=== PATIENT | female | born 1970 | race Caucasian/White ===

== ENCOUNTER 2016-10-18 13:21 | Inpatient (IN) | payer OTHER ==
--- NOTE | 2016-10-18 17:02 | PDOC ---
History of Present Illness - History of Present Illness Initial Comments: 10/18/16 17:01 CHIEF COMPLAINT: right back pain, vomiting since am HISTORY OF PRESENT ILLNESS: 46 yo F with no PMH presents to ED with right back/ right abdominal pain since 2 am accompanied by nausea/vomiting since 4 am. Patient denies fever, chills, urinary or bowel changes. Denies chest pain, shortness of breath. No recent travel or sick contacts. PAST MEDICAL HISTORY: Denies past medical history FAMILY HISTORY: Denies SOCIAL HISTORY: Denies tobacco, alcohol, illicit drug use. SURGICAL HISTORY: Denies ALLERGIES: No known drug allergies REVIEW OF SYSTEMS General/Constitutional: Denies fever or chills. Denies weakness, weight change. HEENT: Denies change in vision. Denies ear pain or discharge. Denies sore throat. Cardiovascular: Denies chest pain or shortness of breath. Respiratory: Denies cough, wheezing, or hemoptysis. Gastrointestinal: Nausea, 2x vomiting W 4 am. Denies diarrhea or constipation. Denies rectal bleeding. Genitourinary: Denies dysuria, frequency, or change in urination. Musculoskeletal: Right sided back pain. Denies joint or muscle swelling or pain. Denies neck or back pain. Skin and breasts: Denies rash or easy bruising. Neurologic: Denies headache, vertigo, loss of consciousness, or loss of sensation. PHYSICAL EXAM General Appearance: Well-appearing, appropriately dressed. No apparent distress , no intoxication. HEENT: EOMI, PERRLA. No conjunctival pallor. No photophobia, scleral icterus. Respiratory/Chest: Lungs CTAB. Cardiovascular: RRR. S1, S2. Vascular Pulses: Dorsalis-Pedis (R): 2+, Dorsalis-Pedis (L): 2+ Gastrointestinal/Abdominal: Normal bowel sounds. Abdomen soft, non-distended. No tenderness or rebound tenderness. No organomegaly, pulsatile mass, guarding , hernia, hepatomegaly, splenomegaly. Lymphatic: No adenopathy, tenderness. Musculoskeletal/Extremities: R CVA tenderness. Normal inspection. FROM of all extremities, normal capillary refill. Pelvis Stable. No CVA tenderness. No tenderness to extremities, pedal edema, swelling, erythema or deformity. Integumentary: Appropriate color, dry, warm. 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 Fully oriented, alert. Appropriate mood/affect. Motor strength 5/5. No appreciable EOM palsy, facial droop or sensory deficit. <Lary Gaxiola - Last Filed: 10/18/16 18:37> <Joanne Mackay - Last Filed: 10/18/16 19:35> - General Chief Complaint: Pain, Acute Stated Complaint: R SIDE BACK PAIN Time Seen by Provider: 10/18/16 17:01 Past History - Past Medical History Other medical history: denies - Psycho/Social/Smoking Cessation Hx Suicidal Ideation: No Smoking History: Never smoked Have you smoked in the past 12 months: No Information on smoking cessation initiated: No <Lary Gaxiola - Last Filed: 10/18/16 18:37> <Joanne Mackay - Last Filed: 10/18/16 19:35> - Past Medical History Allergies/Adverse Reactions: Allergies Allergy/AdvReac Type Severity Reaction Status Date / Time No Known Allergies Allergy Verified 10/18/16 13:28 Home Medications: Ambulatory Orders NK [No Known Home Medication] 10/18/16 *Physical Exam - Vital Signs Last Vital Signs Temp Pulse Resp BP Pulse Ox 83 18 160/94 98 10/18/16 13:28 10/18/16 13:28 10/18/16 13:28 10/18/16 13:28 <Lary Gaxiola - Last Filed: 10/18/16 18:37> - Vital Signs Last Vital Signs Temp Pulse Resp BP Pulse Ox 83 18 160/94 98 10/18/16 13:28 10/18/16 13:28 10/18/16 13:28 10/18/16 13:28 <Joanne Mackay - Last Filed: 10/18/16 19:35> ED Treatment Course - LABORATORY CBC & Chemistry Diagram: 10/18/16 17:12 10/18/16 17:12 <Lary Gaxiola - Last Filed: 10/18/16 18:37> - LABORATORY CBC & Chemistry Diagram: 10/18/16 17:12 10/18/16 17:12 - ADDITIONAL ORDERS Additional order review: Laboratory Results 10/18/16 10/18/16 17:12 17:12 Sodium 140 Potassium 4.7 Chloride 105 Carbon Dioxide 26 Anion Gap 9 BUN 17 Creatinine 1.3 H Creat Clearance w eGFR 43.72 Random Glucose 116 H Calcium 9.4 Total Bilirubin 0.4 AST 30 ALT 27 Alkaline Phosphatase 80 Total Protein 7.6 Albumin 4.1 Urine Color Yellow Urine Appearance Cloudy Urine pH 5.0 Ur Specific [place] 1.028 Urine Protein 1+ H Urine Glucose (UA) Negative Urine Ketones 1+ H Urine Blood 3+ H Urine Nitrite Negative Urine Bilirubin Negative Urine Urobilinogen Negative Ur Leukocyte Esterase Negative Urine RBC 71 Urine WBC 6 Ur Epithelial Cells Rare Urine Mucus Rare Urine HCG, Qual Negative 10/18/16 17:12 RBC 5.00 MCV 84.6 MCHC 33.0 RDW 13.5 MPV 9.3 Neutrophils % 84.0 H Lymphocytes % 10.0 Monocytes % 5.0 - Medications Given in the ED: ED Medications Discontinued Medications Generic Name Dose Route Start Last Admin Trade Name Jamaalq PRN Reason Stop Dose Admin Ketorolac Tromethamine 30 mg 10/18/16 17:26 10/18/16 17:37 Toradol Injection - IVPUSH 10/18/16 17:27 30 mg ONCE ONE Administration Sodium Chloride 1,000 ml 10/18/16 17:13 10/18/16 17:13 Normal Saline - IV 10/18/16 17:14 1,000 ml NOW ONE Administration <Joanne Mackay - Last Filed: 10/18/16 19:35> Medical Decision Making - Medical Decision Making 10/18/16 18:02 46 yo F with no PMH presents to ED with new onset R back pain with N/V since this morning. Ddx: Nephrolithiasis, pancreatitis, appendicitis. Dissection, AAA considered but unlikely given history and clinical presentation. -UA, Ucx, Urine preg -CMP, lipase -30 mg Toradol IV UA: [address] to r/o stones. 10/18/16 18:34 UA: WBC 14.2, mild left shift to 84.[address] <Lary Gaxiola - Last Filed: 10/18/16 18:37> - Medical Decision Making 10/18/16 19:34 Patient Name: Wilma Snowden THIS IS A PRELIMINARYREPORT FROM IMAGING DIRECTOR OF FINANCIAL REPORTING DATE OF SERVICE: 2016-10-18 18:26:34.0 IMAGES: 465 EXAM: CT of the abdomen and pelvis without contrast HISTORY:Right flank pain COMPARISON: None. FINDINGS:Serial transaxial images of the abdomen and pelvis are available without oral or intravenous contrast agent. Sagittal and coronal reformatted imaging is available. Visible portions of the lung base are normal. No focal abnormality of the liver is seen. The gallbladder and spleen are normal. There is a small intrathoracic hiatal hernia. The pancreas is normal. The adrenal glands are normal. The left kidney is grossly within normal limits. There is relative enlargement of the right kidney with perinephric stranding and possible fluid. There is mild to moderate dilatation of the right renal collecting system with a partially obstructing distal right ureteral stone. This measures nearly 5 mm in size. There is poor distention of the urinary bladder. The uterus is grossly unremarkable. A normal appendix is seen. No inflammation of the colon is seen or small bowel. No bowel obstruction is seen. No free air is seen. No adenopathy is seen. The osseous structures are unremarkable. IMPRESSION: Findings most consistent with a partially obstructing distal right ureteral stone. A secondary pyelonephritis of the right kidney cannot be excluded THIS DOCUMENT HAS BEEN ELECTRONICALLY SIGNED <Joanne Mackay - Last Filed: 10/18/16 19:35> *DC/Admit/Observation/Transfer <Lary Gaxiola - Last Filed: 10/18/16 18:37> <Joanne Mackay - Last Filed: 10/18/16 19:35> Diagnosis at time of Disposition: Hydronephrosis with renal and ureteral calculus obstruction, Pyelonephritis, Vomiting - Discharge Dispostion Condition at time of disposition: Guarded
[2016-10-18] MEDS ORDERED: SODIUM CHLORIDE 0.9% 1000 ML INFUS.BAG IV ONE (17:13)
[2016-10-18 17:15] LABS: MCH 27.9 pg (25.7-33.7); MEAN CELL VOLUME 84.6 fl (80-96); MEAN PLT VOLUME 9.3 fl (7.5-11.1); PLATELET COUNT 232 K/MM3 (134-434); RDW 13.5 % (11.6-15.6); WHITE BLOOD COUNT 14.2 K/mm3 (4.0-10.0)
[2016-10-18 17:18] LABS: URINE APPEARANCE CLOUDY; URINE BILIRUBIN NEGATIVE (NEGATIVE); URINE COLOR YELLOW; URINE GLUCOSE (UA) NEGATIVE (NEGATIVE); URINE KETONE 1+ (NEGATIVE); URINE LEUK ESTERASE NEGATIVE (NEGATIVE); URINE NITRITE NEGATIVE (NEGATIVE); URINE UROBILINOGEN NEGATIVE E.U./dl (0.2-1.0)
[2016-10-18 17:19] LABS: URINE BLOOD 3+ (NEGATIVE); URINE PROTEIN 1+ (NEGATIVE)
[2016-10-18] MEDS ORDERED: KETOROLAC TROMETHAMINE 30 MG/1 ML VIAL IVPUSH ONE (17:26)
[2016-10-18 17:27] LABS: URINE MUCUS RARE; URINE RBC 71 /hpf (0-3); URINE WBC 6 /hpf (3-5)
[2016-10-18] MEDS ORDERED: KETOROLAC TROMETHAMINE 60 MG/2 ML VIAL ONE (17:34)
[2016-10-18 17:51] LABS: ALBUMIN 4.1 g/dl (3.4-5.0); BILIRUBIN,TOTAL 0.4 mg/dL (0.2-1.0); CALCIUM 9.4 mg/dL (8.5-10.1); CREATININE 1.3 mg/dL (0.55-1.02); TOT PROT 7.6 g/dl (6.4-8.2)
[2016-10-18 18:07] LABS: PLATELET ESTIMATE ADEQUATE (NORMAL)
[2016-10-18] MEDS ORDERED: LEVOFLOXACIN 750 MG IVPB 150 ML IVPB ONE ×2 (19:20→19:26)
[2016-10-18] MEDS ORDERED: SODIUM CHLORIDE 1,000 ML IV ONE (19:22)
--- NOTE | 2016-10-18 19:43 | PN ---
<Pratibha Noriega - Last Filed: 10/18/16 19:43> Teaching Attending Note Name of Resident: Abelardo Chandler <Maikel Brambila - Last Filed: 10/18/16 22:32> Teaching Attending Note ATTENDING PHYSICIAN STATEMENT I saw and evaluated the patient. I reviewed the resident's note and discussed the case with the resident. I agree with the resident's findings and plan as documented. SUBJECTIVE: Patient is a 46 year old female who presented to the ED with right sided flank pain. Patient stated that around 2am she was awoken from her sleep by the pain. The patient described the pain as sharp, non-radiating, and a 7/10 in severity. The patient stated that her pain had no alleviating or exacerbating factors. The patient reported 2 episodes of vomiting at since 4 am. The patient stated that she took 2 motrin to alleviate symptoms but threw up shortly after. She reported associated cold sweats and chills. She denied similar prior symptoms, fever, hematuria, dysuria, lightheadedness, chest pain and SOB. OBJECTIVE: Vital Signs: Last Vital Signs Temp Pulse Resp BP Pulse Ox 83 18 160/94 98 10/18/16 13:28 10/18/16 13:28 10/18/16 13:28 10/18/16 13:28 GENERAL: Awake, alert, and fully oriented, in no acute distress HEENT: Atraumatic. PERRLA, EOMI. Moist mucosa. No JVD LUNGS: No distress, speaks full sentences, clear to auscultation bilaterally HEART: Regular rate and rhythm, normal S1 and S2, no murmurs, rubs or gallops, peripheral pulses normal and equal bilaterally. ABDOMEN: (+) Right side renal angle tenderness present. Soft, normoactive bowel sounds. No guarding, no rebound. No masses EXTREMITIES: Normal inspection, Normal range of motion, no edema. No clubbing or cyanosis. NEUROLOGICAL: Cranial nerves II through XII grossly intact. Normal speech, normal gait, no focal sensorimotor deficits SKIN: Warm, Dry, normal turgor, no rashes or lesions noted. Labs: CBCD WBC 14.2 K/mm3 (4.0-10.0) H 10/18/16 17:12 RBC 5.00 M/mm3 (3.60-5.2) 10/18/16 17:12 Hgb 14.0 GM/dL (10.7-15.3) 10/18/16 17:12 Hct 42.4 % (32.4-45.2) 10/18/16 17:12 MCV 84.6 fl (80-96) 10/18/16 17:12 MCHC 33.0 g/dl (32.0-36.0) 10/18/16 17:12 RDW 13.5 % (11.6-15.6) 10/18/16 17:12 Plt Count 232 K/MM3 (134-434) 10/18/16 17:12 MPV 9.3 fl (7.5-11.1) 10/18/16 17:12 CMP Sodium 140 mmol/L (136-145) 10/18/16 17:12 Potassium 4.7 mmol/L (3.5-5.1) 10/18/16 17:12 Chloride 105 mmol/L (98-107) 10/18/16 17:12 Carbon Dioxide 26 mmol/L (21-32) 10/18/16 17:12 Anion Gap 9 (8-16) 10/18/16 17:12 BUN 17 mg/dL (7-18) 10/18/16 17:12 Creatinine 1.3 mg/dL (0.55-1.02) H 10/18/16 17:12 Creat Clearance w eGFR 43.72 (>60) 10/18/16 17:12 Calcium 9.4 mg/dL (8.5-10.1) 10/18/16 17:12 Total Bilirubin 0.4 mg/dL (0.2-1.0) 10/18/16 17:12 AST 30 U/L (15-37) 10/18/16 17:12 ALT 27 U/L (12-78) 10/18/16 17:12 Alkaline Phosphatase 80 U/L (45-117) 10/18/16 17:12 Total Protein 7.6 g/dl (6.4-8.2) 10/18/16 17:12 Albumin 4.1 g/dl (3.4-5.0) 10/18/16 17:12 ASSESSMENT AND PLAN: Ureterolithiasis with Pyelonephritis renal angle tenderness, elevated wbc count , perinephric stranding, -IVF 150ml/hr -Morphine 2mg iv Q6H PRN -Flomax 0.4mg daily -Ceftriaxone 2gm IV -Repeat CBC in morning BRAYAN -IV fluid -Monitor creatinine -Fluid: NS 150ml/hr -Electrolytes repeat in morning -Nutrition: regular diet DVT PPX-patient ambulatory Admit to med surg. Documentation prepared by Maikel Brambila, acting as medical or surgical instrument maker for Dr. eLann MD.
[2016-10-18] MEDS ORDERED: CEFTRIAXONE 100 ML IVPB ONE (20:56)
--- NOTE | 2016-10-18 20:59 | HP ---
Addendum entered and electronically signed by Abelardo Chandler RES 10/19/16 07:24 : case discussed with Dr Aguilera urologist. Will take patient for procedure tomorrow Original Note: CHIEF COMPLAINT: right flank pain PCP: Dr Tineo HISTORY OF PRESENT ILLNESS: 46 yo F with no PMH presents to ED with right flank since 2 am, pain was 7/10 in intensity, sharp, non radiating, decreased with medication, no aggravating factor. Pain associated with 2 epsiodes of vomiting , chills and sweating. Patient Didn't check temperature . Patient denies burning micturation, blood in urine, Denies increase in frequency of micturation. Denies diarrhoea, constipation, blood in stool, loss of weight and apatite. Patient took two tablets of motrin in home. No h/o gout, hyperurecemia denies calcium intake ER course was notable for: (1) Iv fluid (2) IV toradol (3) Iv levofloxacin Recent Travel: No recent travel or sick contacts. PAST MEDICAL HISTORY: Hypoglycemia PAST SURGICAL HISTORY: denies Social History: Smoking: no Alcohol:no Drugs: no Family History: Allergies No Known Allergies Allergy (Verified 10/18/16 13:28) HOME MEDICATIONS: Home Medications Medication Instructions Recorded NK [No Known Home Medication] 10/18/16 REVIEW OF SYSTEMS CONSTITUTIONAL: Absent: fever, chills, diaphoresis, generalized weakness, malaise, loss of appetite, weight change HEENT: Absent: rhinorrhea, nasal congestion, throat pain, throat swelling, difficulty swallowing, mouth swelling, ear pain, eye pain, visual changes CARDIOVASCULAR: Absent: chest pain, syncope, palpitations, irregular heart rate, lightheadedness , peripheral edema RESPIRATORY: Absent: cough, shortness of breath, dyspnea with exertion, orthopnea, wheezing, stridor, hemoptysis GASTROINTESTINAL: Absent: abdominal pain, abdominal distension, nausea, vomiting, diarrhea, constipation, melena, hematochezia GENITOURINARY: Absent: dysuria, frequency, urgency, hesitancy, hematuria, flank pain, genital pain MUSCULOSKELETAL: Absent: myalgia, arthralgia, joint swelling, back pain, neck pain SKIN: Absent: rash, itching, pallor HEMATOLOGIC/IMMUNOLOGIC: Absent: easy bleeding, easy bruising, lymphadenopathy, frequent infections ENDOCRINE: Absent: unexplained weight gain, unexplained weight loss, heat intolerance, cold intolerance NEUROLOGIC: Absent: headache, focal weakness or paresthesias, dizziness, unsteady gait, seizure, mental status changes, bladder or bowel incontinence PSYCHIATRIC: Absent: anxiety, depression, suicidal or homicidal ideation, hallucinations. PHYSICAL EXAMINATION Vital Signs - 24 hr 10/18/16 13:28 Pulse Rate 83 Respiratory 18 Rate Blood Pressure 160/94 O2 Sat by Pulse 98 Oximetry (%) GENERAL: Awake, alert, and fully oriented, in no acute distress. HEAD: Normal with no signs of trauma. EYES: Pupils equal, round and reactive to light, extraocular movements intact, sclera anicteric, conjunctiva clear. No lid lag. EARS, NOSE, THROAT: Ears normal, nares patent, oropharynx clear without exudates. Moist mucous membranes. NECK: Normal range of motion, supple without lymphadenopathy, JVD, or masses. LUNGS: Breath sounds equal, clear to auscultation bilaterally. No wheezes, and no crackles. No accessory muscle use. HEART: Regular rate and rhythm, normal S1 and S2 without murmur, rub or gallop. ABDOMEN: Soft, nontender, not distended, normoactive bowel sounds, no guarding, no rebound, no masses. No hepatomegaly or splenomegaly right side renal angle tenderness present . MUSCULOSKELETAL: Normal range of motion at all joints. No bony deformities or tenderness. No CVA tenderness. UPPER EXTREMITIES: 2+ pulses, warm, well-perfused. No cyanosis. No clubbing. Cap refill <2 seconds. No peripheral edema. LOWER EXTREMITIES: 2+ pulses, warm, well-perfused. No calf tenderness. No peripheral edema. NEUROLOGICAL: Cranial nerves II-XII intact. Normal speech. Normal gait. PSYCHIATRIC: Cooperative. Good eye contact. Appropriate mood and affect. SKIN: Warm, dry, normal turgor, no rashes or lesions noted. Laboratory Results - last 24 hr 10/18/16 10/18/16 10/18/16 17:12 17:12 17:12 WBC 14.2 H RBC 5.00 Hgb 14.0 Hct 42.4 MCV 84.6 MCHC 33.0 RDW 13.5 Plt Count 232 MPV 9.3 Neutrophils % 84.0 H Lymphocytes % 10.0 Monocytes % 5.0 Band Neutrophils 1.0 Platelet Estimate Adequate Platelet Comment No clumping noted Sodium 140 Potassium 4.7 Chloride 105 Carbon Dioxide 26 Anion Gap 9 BUN 17 Creatinine 1.3 H Creat Clearance w eGFR 43.72 Random Glucose 116 H Calcium 9.4 Total Bilirubin 0.4 AST 30 ALT 27 Alkaline Phosphatase 80 Total Protein 7.6 Albumin 4.1 Urine Color Yellow Urine Appearance Cloudy Urine pH 5.0 Ur Specific [place] 1.028 Urine Protein 1+ H Urine Glucose (UA) Negative Urine Ketones 1+ H Urine Blood 3+ H Urine Nitrite Negative Urine Bilirubin Negative Urine Urobilinogen Negative Ur Leukocyte Esterase Negative Urine RBC 71 Urine WBC 6 Ur Epithelial Cells Rare Urine Mucus Rare Urine HCG, Qual Negative Current Medications Generic Name Dose Route Start Last Admin Trade Name Freq PRN Reason Stop Dose Admin Ceftriaxone Sodium 2 gm/ 100 mls @ 200 mls/hr 10/18/16 20:56 Dextrose IVPB 10/18/16 21:25 ONCE ONE Sodium Chloride 1,000 mls @ 150 mls/hr 10/18/16 21:00 Normal Saline - IV ASDIR VANNESSA Morphine Sulfate 2 mg 10/18/16 20:56 Morphine Injection - IVPUSH Q6H PRN PAIN Tamsulosin HCl 0.4 mg 10/19/16 10:00 Flomax - PO DAILY VANNESSA CT of the abdomen and pelvis FINDINGS:Serial transaxial images of the abdomen and pelvis are available without oral or intravenous contrast agent. Sagittal and coronal reformatted imaging is available. Visible portions of the lung base are normal. No focal abnormality of the liver is seen. The gallbladder and spleen are normal. There is a small intrathoracic hiatal hernia. The pancreas is normal. The adrenal glands are normal. The left kidney is grossly within normal limits. There is relative enlargement of the right kidney with perinephric stranding and possible fluid. There is mild to moderate dilatation of the right renal collecting system with a partially obstructing distal right ureteral stone. This measures nearly 5 mm in size. There is poor distention of the urinary bladder. The uterus is grossly unremarkable. A normal appendix is seen. No inflammation of the colon is seen or small bowel. No bowel obstruction is seen. No free air is seen. No adenopathy is seen. The osseous structures are unremarkable. IMPRESSION: Findings most consistent with a partially obstructing distal right ureteral stone. A secondary pyelonephritis of the right kidney cannot be excluded THIS DOCUMENT HAS BEEN ELECTRONICALLY SIGNED ASSESSMENT/PLAN: 46 yo F with no PMH presents to ED with right flank diagnosed to have renal stone ureterolithiasis with pyelonephritis renal angle tenderness, elevated wbc count, perinephric stranding, Iv fluid 150ml/hr morphine 2mg iv q6h prn flomax 0.4mg daily ceftriaxone 2gm iv repeat cbc in morning Nataly IV fluid monitor creatinine Fluid: NS 150ml/hr electrolytes repeat in morning nutrition: regular diet dvt pro: patient ambulatory GI pro: not required Dispo: admit in med surg Visit type - Emergency Visit Emergency Visit: Yes ED Registration Date: 10/18/16 Care time: The patient presented to the Emergency Department on the above date and was hospitalized for further evaluation of their emergent condition. - New Patient This patient is new to me today: Yes Date on this admission: 10/19/16 - Critical Care Critical Care patient: No
[2016-10-18] MEDS ORDERED: CEFTRIAXONE 50 ML ONE (21:50)
[2016-10-18] MEDS ORDERED: morphine CARPU-JECT 2 MG/1 ML DISP.SYRIN ONE (21:50)
[2016-10-18] MEDS: morphine CARPU-JECT 2 MG/1 ML DISP.SYRIN IVPUSH PRN (21:57)
[2016-10-18] MEDS: SODIUM CHLORIDE 1,000 ML IV SCH (22:00)
--- NOTE | 2016-10-18 22:02 | PDOC ---
*Physical Exam - Vital Signs Last Vital Signs Temp Pulse Resp BP Pulse Ox 83 18 160/94 98 10/18/16 13:28 10/18/16 13:28 10/18/16 13:28 10/18/16 13:28 ED Treatment Course - LABORATORY CBC & Chemistry Diagram: 10/18/16 17:12 10/18/16 17:12 - ADDITIONAL ORDERS Additional order review: Laboratory Results 10/18/16 10/18/16 17:12 17:12 Sodium 140 Potassium 4.7 Chloride 105 Carbon Dioxide 26 Anion Gap 9 BUN 17 Creatinine 1.3 H Creat Clearance w eGFR 43.72 Random Glucose 116 H Calcium 9.4 Total Bilirubin 0.4 AST 30 ALT 27 Alkaline Phosphatase 80 Total Protein 7.6 Albumin 4.1 Urine Color Yellow Urine Appearance Cloudy Urine pH 5.0 Ur Specific [place] 1.028 Urine Protein 1+ H Urine Glucose (UA) Negative Urine Ketones 1+ H Urine Blood 3+ H Urine Nitrite Negative Urine Bilirubin Negative Urine Urobilinogen Negative Ur Leukocyte Esterase Negative Urine RBC 71 Urine WBC 6 Ur Epithelial Cells Rare Urine Mucus Rare Urine HCG, Qual Negative 10/18/16 17:12 RBC 5.00 MCV 84.6 MCHC 33.0 RDW 13.5 MPV 9.3 Neutrophils % 84.0 H Lymphocytes % 10.0 Monocytes % 5.0 - Medications Given in the ED: ED Medications Discontinued Medications Generic Name Dose Route Start Last Admin Trade Name Ria PRN Reason Stop Dose Admin Levofloxacin 150 mls @ 100 mls/hr 10/18/16 19:20 10/18/16 19:34 Levaquin 750 Mg Premixed Ivpb - IVPB 10/18/16 20:49 100 mls/hr ONCE ONE Administration Sodium Chloride 1,000 mls @ 1,000 mls/hr 10/18/16 19:22 10/18/16 19:34 Normal Saline - IV 10/18/16 20:21 1,000 mls/hr .Q1H ONE Administration Ceftriaxone Sodium 100 mls @ 200 mls/hr 10/18/16 20:56 10/18/16 21:57 Rocephin 2gm Ivpb (Pre-Docked) IVPB 10/18/16 21:25 200 mls/hr ONCE ONE Administration Ketorolac Tromethamine 30 mg 10/18/16 17:26 10/18/16 17:37 Toradol Injection - IVPUSH 10/18/16 17:27 30 mg ONCE ONE Administration Sodium Chloride 1,000 ml 10/18/16 17:13 10/18/16 17:13 Normal Saline - IV 10/18/16 17:14 1,000 ml NOW ONE Administration Medical Decision Making - Medical Decision Making 10/18/16 23:21 patient endorsed to me by NIKKI Gaxiola pending CT scan and disposition ct scan reviewed noted to have a 5mm stone and pyelonephritis will need admission. Patient given Levaquin and hospitalist contacted for admission *DC/Admit/Observation/Transfer Diagnosis at time of Disposition: Hydronephrosis with renal and ureteral calculous obstruction, Pyelonephritis, Vomiting - Discharge Dispostion Condition at time of disposition: Stable Admit: Yes - Referrals Referrals: Jono Tineo MD [Primary Care Provider] - - Patient Instructions - Post Discharge Activity
[2016-10-19 03:47] VITALS: BMI 40.4
[2016-10-19] MEDS: SODIUM CHLORIDE 1,000 ML IV SCH ×3 (05:30→18:22)
[2016-10-19 07:17] LABS: BASOPHIL 0.3 % (0-2.0); EOSINOPHIL 0.2 % (0-4.5); MCH 28.4 pg (25.7-33.7); MCHC 33.3 g/dl (32.0-36.0); MEAN CELL VOLUME 85.2 fl (80-96); MEAN PLT VOLUME 9.5 fl (7.5-11.1); NEUTROPHILS 79.1 % (42.8-82.8); PLATELET COUNT 156 K/MM3 (134-434); RDW 13.7 % (11.6-15.6); WHITE BLOOD COUNT 9.6 K/mm3 (4.0-10.0)
[2016-10-19 07:43] LABS: ALBUMIN 3.1 g/dl (3.4-5.0); BILIRUBIN,TOTAL 0.5 mg/dL (0.2-1.0); CREATININE 1.3 mg/dL (0.55-1.02); MAGNESIUM 1.9 mg/dL (1.8-2.4); PHOSPHOROUS 3.4 mg/dL (2.5-4.9); TOT PROT 6.2 g/dl (6.4-8.2)
[2016-10-19] MEDS: TAMSULOSIN HCL 0.4 MG CAP.ER.24H (FP) PO SCH (08:28)
--- NOTE | 2016-10-19 11:29 | CON.GU ---
Consult Consult Specialty:: Urology Referred by:: Figueroa Reason for Consultation:: R ureteral calculus - History of Present Illness Chief Complaint: R flank pain History of Present Illness: 46 yo f pres to ER c/o sudden onset of severe R flank pain assoc w N, V and chills, found to have a 5 mm partially obstructing R distal ureteral calculus w mild-mod R hydronephrosis w perinephric stranding and cons req. - History Source History Provided By: Patient, Medical Record Limitations to Obtaining History: No Limitations - Past Medical History ...LMP: 10/11/16 ...: No - Alcohol/Substance Use Hx Alcohol Use: No - Smoking History Smoking history: Never smoked Have you smoked in the past 12 months: No Home Medications - Allergies Allergies/Adverse Reactions: Allergies Allergy/AdvReac Type Severity Reaction Status Date / Time No Known Allergies Allergy Verified 10/18/16 13:28 - Home Medications Home Medications: Ambulatory Orders NK [No Known Home Medication] 10/18/16 Review of Systems - Review of Systems Genitourinary: reports: Flank Pain Physical Exam- Vital Signs: Vital Signs Temperature 98.2 F 10/19/16 09:00 Pulse Rate 88 10/19/16 09:00 Respiratory Rate 18 10/19/16 09:00 Blood Pressure 144/89 10/19/16 09:00 O2 Sat by Pulse Oximetry (%) 97 10/19/16 04:03 Renal/: Yes: CVA Tenderness - Right Labs: CBC, BMP 10/19/16 06:00 10/19/16 06:00 Imaging - Results Cat Scan: Report Reviewed, Image Reviewed Assessment/Plan Imp: 5 mm R distal ureteral calculus, mild-mod R hydronephrosis Rec: IVFS @ 150 ml/hr, tamsulosin, rocephin, analgesia, strain urine, cysto, R ureteroscopic laser lithotripsy and R JJ stent insertion 10/20 if stone fails to pass.
[2016-10-19] MEDS: morphine CARPU-JECT 2 MG/1 ML DISP.SYRIN IVPUSH PRN ×2 (12:06→22:21)
[2016-10-19] MEDS ORDERED: morphine CARPU-JECT 2 MG/1 ML DISP.SYRIN IVPUSH PRN (13:11)
[2016-10-19] MEDS ORDERED: SODIUM CHLORIDE 1,000 ML IV SCH (13:12)
--- NOTE | 2016-10-19 13:16 | PN ---
Progress Note (short form) - Note Progress Note: Subjective: no fever or chills , R flank pain is better today , no abd pain . denies any dysuria , or diarrhea . Objective: Vital Signs: Last Vital Signs Temp Pulse Resp BP Pulse Ox 98.2 F 88 18 144/89 99 10/19/16 09:00 10/19/16 09:00 10/19/16 09:00 10/19/16 09:00 10/19/16 09:10 Physical Exam: AND , AAOx3 dry MM CV: RRR, no MRG Ext : no edema or erythema Abd : sott, NT < ND , NL BS . R CVA tenderness Labs: Laboratory Results - last 24 hr 10/18/16 10/18/16 10/18/16 17:12 17:12 17:12 WBC 14.2 H RBC 5.00 Hgb 14.0 Hct 42.4 MCV 84.6 MCHC 33.0 RDW 13.5 Plt Count 232 MPV 9.3 Neutrophils % 84.0 H Lymphocytes % 10.0 Monocytes % 5.0 Eosinophils % Basophils % Band Neutrophils 1.0 Platelet Estimate Adequate Platelet Comment No clumping noted Sodium 140 Potassium 4.7 Chloride 105 Carbon Dioxide 26 Anion Gap 9 BUN 17 Creatinine 1.3 H Creat Clearance w eGFR 43.72 Random Glucose 116 H Calcium 9.4 Phosphorus Magnesium Total Bilirubin 0.4 AST 30 ALT 27 Alkaline Phosphatase 80 Total Protein 7.6 Albumin 4.1 Lipase Urine Color Yellow Urine Appearance Cloudy Urine pH 5.0 Ur Specific Elida 1.028 Urine Protein 1+ H Urine Glucose (UA) Negative Urine Ketones 1+ H Urine Blood 3+ H Urine Nitrite Negative Urine Bilirubin Negative Urine Urobilinogen Negative Ur Leukocyte Esterase Negative Urine RBC 71 Urine WBC 6 Ur Epithelial Cells Rare Urine Mucus Rare Urine HCG, Qual Negative 10/18/16 10/19/16 10/19/16 18:57 06:00 06:00 WBC 9.6 D RBC 4.39 Hgb 12.5 D Hct 37.4 MCV 85.2 MCHC 33.3 RDW 13.7 Plt Count 156 D MPV 9.5 Neutrophils % 79.1 Lymphocytes % 11.7 Monocytes % 8.7 Eosinophils % 0.2 Basophils % 0.3 Band Neutrophils Platelet Estimate Platelet Comment Sodium 139 Potassium 4.0 Chloride 105 Carbon Dioxide 24 Anion Gap 10 BUN 17 Creatinine 1.3 H Creat Clearance w eGFR 43.72 Random Glucose 106 Calcium 8.0 L Phosphorus 3.4 Magnesium 1.9 Total Bilirubin 0.5 D AST 20 D ALT 20 D Alkaline Phosphatase 63 D Total Protein 6.2 L Albumin 3.1 L D Lipase 422 H Urine Color Urine Appearance Urine pH Ur Specific Elida Urine Protein Urine Glucose (UA) Urine Ketones Urine Blood Urine Nitrite Urine Bilirubin Urine Urobilinogen Ur Leukocyte Esterase Urine RBC Urine WBC Ur Epithelial Cells Urine Mucus Urine HCG, Qual Imaging: Ct scan image of Abd reviewed. R hydronephrosis nad hydroureter with small stone in ureter and perinephric stranding Assessment/Plan: 46 y/o lady with no significant PMH who presented with R falnk pain and fever , she was found to have R peylonephritis and hydro 2/2 obstructing ureteral stone 1- R peylonephritis and hydronephrosis 2/2 small obstructing ureteral stone - continue ceftriaxone - cont IVF - unfortunately urine and blood cx were not sent before Abx initiation. will send - avoid toradol and give morphine for pain given her renal function - strain urine - seen by uro , fro stone removal and stent tomorrow 2- BRAYAN : 2/2 obstruction and infection . also looks volume depleted. - cont IVF and treat infection - stone removal tomorrow 3- Dispo : HLOC . possible dc on Thursday Visit type - Emergency Visit Emergency Visit: Yes ED Registration Date: 10/18/16 Care time: The patient presented to the Emergency Department on the above date and was hospitalized for further evaluation of their emergent condition. - New Patient This patient is new to me today: Yes Date on this admission: 10/19/16 - Critical Care Critical Care patient: No
[2016-10-19] MEDS: CEFTRIAXONE 100 ML IVPB SCH (22:22)
[2016-10-20] MEDS: SODIUM CHLORIDE 1,000 ML IV SCH ×2 (02:30→09:36)
[2016-10-20] MEDS: morphine CARPU-JECT 2 MG/1 ML DISP.SYRIN IVPUSH PRN (06:39)
[2016-10-20 07:45] LABS: BASOPHIL 0.4 % (0-2.0); EOSINOPHIL 0.4 % (0-4.5); MCH 28.9 pg (25.7-33.7); MCHC 33.9 g/dl (32.0-36.0); MEAN PLT VOLUME 9.5 fl (7.5-11.1); NEUTROPHILS 74.7 % (42.8-82.8); PLATELET COUNT 141 K/MM3 (134-434); RDW 13.2 % (11.6-15.6); WHITE BLOOD COUNT 9.4 K/mm3 (4.0-10.0)
[2016-10-20] MEDS: TAMSULOSIN HCL 0.4 MG CAP.ER.24H (FP) PO SCH (08:00)
[2016-10-20 08:03] LABS: INR 1.27 (0.82-1.09)
[2016-10-20 08:06] LABS: ACTIVATED PTT 28.8 SECONDS (26.9-34.4)
[2016-10-20 08:08] LABS: CALCIUM 8.1 mg/dL (8.5-10.1); CREATININE 1.3 mg/dL (0.55-1.02)
--- NOTE | 2016-10-20 08:14 | PN ---
Physical Exam: SUBJECTIVE: Patient seen and examined intermittent right flank pain relieved with morphine NPO since midnight. urinating without difficulty, no stone strained, no hematuria noted. denies dysuria, fever, chest pain, SOB. OBJECTIVE: Vital Signs Period Temp Pulse Resp BP Sys/Love Pulse Ox Last 24 Hr 97.9 F-98.6 F 83-89 18-20 137-144/74-89 99-99 GENERAL: The patient is awake, alert, and fully oriented, in no acute distress. HEAD: Normal with no signs of trauma. EYES: PERRL, extraocular movements intact, sclera anicteric, conjunctiva clear. No ptosis. ENT: Ears normal, nares patent, oropharynx clear without exudates, moist mucous membranes. NECK: Trachea midline, full range of motion, supple. LUNGS: Breath sounds equal, clear to auscultation bilaterally, no wheezes, no crackles, no accessory muscle use. HEART: Regular rate and rhythm, S1, S2 without murmur, rub or gallop. ABDOMEN: obese, Soft, mild ache in right mid quadrant anteriorly, nondistended, normoactive bowel sounds, no guarding, no rebound. no CVA tenderness EXTREMITIES: 2+ pulses, warm, well-perfused, no edema. NEUROLOGICAL: Normal speech PSYCH: Normal mood, normal affect. SKIN: Warm, dry, normal turgor, no rashes or lesions noted Laboratory Results - last 24 hr 10/19/16 10/20/16 06:00 06:50 WBC 9.4 RBC 4.23 Hgb 12.2 Hct 36.0 MCV 85.0 MCHC 33.9 RDW 13.2 Plt Count 141 MPV 9.5 Neutrophils % 74.7 Lymphocytes % 13.9 Monocytes % 10.6 H Eosinophils % 0.4 D Basophils % 0.4 Sodium 139 Potassium 4.0 Chloride 105 Carbon Dioxide 24 Anion Gap 10 BUN 17 Creatinine 1.3 H Creat Clearance w eGFR 43.72 Random Glucose 106 Calcium 8.0 L Phosphorus 3.4 Magnesium 1.9 Total Bilirubin 0.5 D AST 20 D ALT 20 D Alkaline Phosphatase 63 D Total Protein 6.2 L Albumin 3.1 L D Active Medications Generic Name Dose Route Start Last Admin Trade Name Freq PRN Reason Stop Dose Admin Ceftriaxone Sodium 100 mls @ 200 mls/hr 10/19/16 21:00 10/19/16 22:22 Rocephin 2gm Ivpb (Pre-Docked) IVPB 200 mls/hr DAILY VANNESSA Administration Sodium Chloride 1,000 mls @ 150 mls/hr 10/19/16 13:14 10/20/16 02:30 Normal Saline - IV 150 mls/hr ASDIR VANNESSA Administration Morphine Sulfate 2 mg 10/18/16 20:56 10/20/16 06:39 Morphine Injection - IVPUSH 2 mg Q6H PRN Administration PAIN Morphine Sulfate 2 mg 10/19/16 13:11 10/19/16 18:22 Morphine Injection - IVPUSH 2 mg Q4H PRN Administration PAIN Tamsulosin HCl 0.4 mg 10/19/16 08:30 10/19/16 08:28 Flomax - PO 0.4 mg DAILY@0830 VANNESSA Administration ASSESSMENT/PLAN: 46 yr old woman with eczema, 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 Aguilera #Nephrolithiasis with hydronephrosis - obstructing renal stone in right UVJ seen on CT - no stone strained since admission, for lithotripsy today - IVF NS @ 150ml/hr - Rocephin 2gm qdaily, IV - pain controlled with morphine 2gm q6/4 hr prn - flomax daily - leucocytosis improved, bld anc ucx improved #Elevated Cr, unknown baseline - likely from obstruction - IVF NS @150ml/hr #Diet - NPO #DVT: low risk, for procedure today Visit type - Emergency Visit Emergency Visit: No - New Patient This patient is new to me today: Yes Date on this admission: 10/20/16 - Critical Care Critical Care patient: No
[2016-10-20] MEDS: CEFTRIAXONE 100 ML IVPB SCH (11:04)
[2016-10-20] MEDS ORDERED: MIDAZOLAM HCL 2 MG/2 ML SINGLE DOSE VIAL ONE (12:57)
[2016-10-20] MEDS ORDERED: PROPOFOL 20 ML ONE ×2 (12:58→13:21)
[2016-10-20] MEDS ORDERED: SUCCINYLCHOLINE CHLORIDE 200 MG/10 ML VIAL ONE (12:59)
[2016-10-20] MEDS ORDERED: GENTAMICIN SO4 80 MG/2 ML VIAL IVPB ONE (13:20)
[2016-10-20] MEDS ORDERED: DEXAMETHASONE SOD PHOSPHATE 4 MG/1 ML VIAL ONE (13:25)
[2016-10-20] MEDS ORDERED: GENTAMICIN SO4 80 MG/2 ML VIAL ONE (13:26)
--- NOTE | 2016-10-20 13:54 | OP ---
Operative Note - Note: Operative Date: 10/20/16 Pre-Operative Diagnosis: R ureteral calculus, R hydronephrosis Operation: cystoscopy, R ureteroscopic laser lithotripsy, R JJ stent insertion Findings: 5 mm R distal ureteral calculus, mod R hydro Post-Operative Diagnosis: Same as Pre-op Surgeon: Kiko Aguilera Anesthesiologist/APARTMENT LEASING SPECIALIST: Yovana Barboza MD Anesthesia: General Specimens Removed: R ureteral calculus Estimated Blood Loss (mls): 0 Drains & Tubes with Location: 6 fr 24 cm R JJ stent Operative Report Dictated: Yes
[2016-10-20] MEDS ORDERED: ONDANSETRON 4 MG/2 ML VIAL IVPUSH PRN (13:56)
[2016-10-20] MEDS: LACTATED RINGERS SOLUTION 1,000 ML IV SCH ×2 (15:30→22:11)
--- NOTE | 2016-10-20 17:46 | PN ---
Teaching Attending Note Name of Resident: Raghav Duggan ATTENDING PHYSICIAN STATEMENT I saw and evaluated the patient. I reviewed the resident's note and discussed the case with the resident. I agree with the resident's findings and plan as documented. SUBJECTIVE: seen around 11 am ABd pain , in R LQ , no dysuria ro bleeding . no fever or chills . OBJECTIVE: AND CV : RRR Lungs : CTAB Abd : soft, TTP i n RLQ , no rebound tenderness or guarding . R CVA tenderness Ext : no edema ASSESSMENT AND PLAN: 46 y/o lady with no significant PMH who presented with R falnk pain and fever , she was found to have R peylonephritis and hydro 2/2 obstructing ureteral stone 1- R peylonephritis and hydronephrosis 2/2 small obstructing ureteral stone - Continue ceftriaxone. - decrease IVF to 100 after procedure - follow urine /blood cx ( taken after abx started ) - change pain meds to percocet in am - laser lithotripsy and JJ stent placement today 2- BRAYAN : 2/2 obstruction and infection - cont IVF and treat infection - stone removal 3- Dispo : HLOC . possible dc tomorrow
[2016-10-21 07:32] LABS: CALCIUM 8.3 mg/dL (8.5-10.1); CREATININE 0.7 mg/dL (0.55-1.02)
--- NOTE | 2016-10-21 08:09 | PN ---
Physical Exam: SUBJECTIVE: Patient seen and examined feels well. pain improved, urinate had some blood after the lithotripsy but cleared up overnight, now clear yellow. no burning on urination, no hematuria, no pyuria, no fevers, chills, n/v, abdominal pain. OBJECTIVE: Vital Signs Period Temp Pulse Resp BP Sys/Love Pulse Ox Last 24 Hr 97.8 F-99.0 F 72-98 16-20 112-148/56-87 96-98 GENERAL: The patient is awake, alert, and fully oriented, in no acute distress. HEAD: Normal with no signs of trauma. EYES: PERRL, extraocular movements intact, sclera anicteric, conjunctiva clear. No ptosis. ENT: Ears normal, nares patent, oropharynx clear without exudates, moist mucous membranes. NECK: Trachea midline, full range of motion, supple. LUNGS: Breath sounds equal, clear to auscultation bilaterally, no wheezes, no crackles, no accessory muscle use. HEART: Regular rate and rhythm, S1, S2 without murmur, rub or gallop. ABDOMEN: obese, Soft, nontender, nondistended, normoactive bowel sounds, no guarding, no rebound, no hepatosplenomegaly, no masses. EXTREMITIES: 2+ pulses, warm, well-perfused, no edema. stent strings securely taped to right inner thigh NEUROLOGICAL: Cranial nerves II through XII grossly intact. Normal speech, gait not observed. PSYCH: Normal mood, normal affect. SKIN: Warm, dry, normal turgor, no rashes or lesions noted Laboratory Results - last 24 hr 10/20/16 10/20/16 10/21/16 06:50 06:50 06:00 INR 1.27 H PTT (Actin FS) 28.8 Sodium 140 142 Potassium 3.9 4.1 Chloride 108 H 106 Carbon Dioxide 24 27 Anion Gap 8 9 BUN 10 D 9 Creatinine 1.3 H 0.7 D Random Glucose 101 104 Calcium 8.1 L 8.3 L Active Medications Generic Name Dose Route Start Last Admin Trade Name Freq PRN Reason Stop Dose Admin Fentanyl 50 mcg 10/20/16 13:56 Sublimaze Injection - IVPUSH 10/23/16 13:57 [id number] PRN PAIN Ceftriaxone Sodium 100 mls @ 200 mls/hr 10/19/16 21:00 10/20/16 11:04 Rocephin 2gm Ivpb (Pre-Docked) IVPB 200 mls/hr DAILY VANNESSA Administration Morphine Sulfate 2 mg 10/19/16 13:11 10/19/16 18:22 Morphine Injection - IVPUSH 2 mg Q4H PRN Administration PAIN Tamsulosin HCl 0.4 mg 10/19/16 08:30 10/20/16 08:00 Flomax - PO Not Given DAILY@0830 [facility] ASSESSMENT/PLAN: 46 yr old woman with eczema, 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 Aguilera #pyelonephritis - obstructing renal stone in right UVJ seen on CT - has good appetite - s/p lithotripsy, tolerated procedure well without complications - Rocephin 2gm qdaily, IV - pain controlled with morphine 2gm q6/4 hr prn - flomax daily, stop today - leucocytosis improved, bld and ucx NGTD #Cr improved #Diet - regular diet #DVT: low risk Visit type - Emergency Visit Emergency Visit: No - New Patient This patient is new to me today: No - Critical Care Critical Care patient: No - Discharge Referral Referred to [facility] Med P.C.: No
[2016-10-21] MEDS: TAMSULOSIN HCL 0.4 MG CAP.ER.24H (FP) PO SCH (08:34)
[2016-10-21 08:39] VITALS: BP 117/68; PULSE 102; TEMP 98.7
[2016-10-21] MEDS: CEFTRIAXONE 100 ML IVPB SCH (10:00)
--- NOTE | 2016-10-21 15:48 | OP ---
DATE OF OPERATION: 10/20/2016 PREOPERATIVE DIAGNOSIS: Right distal ureteral calculus, right hydronephrosis. POSTOPERATIVE DIAGNOSIS: Right distal ureteral calculus, right hydronephrosis. PROCEDURE: Cystoscopy, right ureteroscopic laser lithotripsy, right double-J stent insertion. SURGEON: Kiko Aguilera MD SCIENTIST ELECTRONICS: None. ANESTHESIA: General via laryngeal mask. ANESTHESIOLOGIST: Yovana Barboza MD SPECIMENS: Right ureteral calculus. CULTURES: None. DRAINS: A 6-Divehi 24-cm right double-J stent. ESTIMATED BLOOD LOSS: None. COMPLICATION: None. PROCEDURE: The patient was brought in the operating room, placed on the operating table in the supine position. After administration of general anesthesia via laryngeal mask, intravenous antibiotics were administered and the patient was placed in the dorsal lithotomy position and the vagina and perineum were prepped and draped in the usual sterile manner. The 22-Divehi cystoscope was inserted into the bladder with the obturator in place. The obturator was removed and urine was evacuated. A 0.038 Sensor wire was inserted into the right ureteral orifice, advanced to the level of the right renal pelvis under fluoroscopic guidance. In the bladder, there were no foreign bodies, tumors, stones, inflammation. Both ureteral orifices were in the usual location with diminished efflux from the right ureteral orifice. Now the bladder was emptied and the cystoscope removed. Ureteroscope was inserted alongside the guidewire into the distal ureter, where a 5-mm stone was visualized. Now the 325 micron laser fiber was inserted and laser lithotripsy was done until the stone was fragmented into a smaller size that could be basketed. Now the laser fiber was removed and the basket was inserted. The stone was captured within the basket and removed, sent to Pathology as specimen. Now the dual-lumen catheter was inserted. Retrograde pyelogram is done, demonstrated opacification of the right renal collecting system, which demonstrated moderate right hydronephrosis. There was no extravasation and prompt drainage of contrast from the ureter into the bladder. Now a 6-Divehi 24-cm right double-J stent was inserted over the guidewire under fluoroscopic and direct visual guidance, leaving 1 coil in the renal pelvis and 1 coil in the bladder. The bladder was emptied, instruments removed. She tolerated the procedure well. She was transferred to the recovery room in stable condition. PLAN: Follow up in the office for stent removal. Discharge on antibiotics. Vishnu [id number]
--- NOTE | 2016-10-21 17:47 | PN ---
Teaching Attending Note Name of Resident: Raghav Duggan ATTENDING PHYSICIAN STATEMENT I saw and evaluated the patient. I reviewed the resident's note and discussed the case with the resident. I agree with the resident's findings and plan as documented. SUBJECTIVE: no pain in abd , no pain in flanks , no dysuria , no fever or chills . feels much better OBJECTIVE: AND CV : RRR Lungs : CTAB Abd : soft, NT. no CVA tenderness Ext : no edema ASSESSMENT AND PLAN: 46 y/o lady with no significant PMH who presented with R falnk pain and fever , she was found to have R peylonephritis and hydro 2/2 obstructing ureteral stone 1- R peylonephritis and hydronephrosis 2/2 small obstructing ureteral stone s/p stone laser lithotripsy and JJ stent placement 2. change Abx to vantin for 11 more days ( since responded well to 3rd generation cephalosporin, and we have no urine cx to guide out treatment ) has apt with urology in next few days 2- BRAYAN : 2/2 obstruction and infection. received IVF and cr normalized after procedure Dc home today
--- NOTE | 2016-10-21 18:33 | DS ---
Physical Exam: SUBJECTIVE: Patient seen and examined. no complaints, symptoms improved since admission, she is stable for discharge and outpatient follow-up OBJECTIVE: Vital Signs Period Temp Pulse Resp BP Sys/Love Pulse Ox Last 24 Hr 97.8 F-98.7 F 79-102 20-20 112-138/56-78 97-98 PHYSICAL EXAM GENERAL: The patient is awake, alert, and fully oriented, in no acute distress. LUNGS: Breath sounds equal, clear to auscultation bilaterally, no wheezes, no crackles, no accessory muscle use. HEART: Regular rate and rhythm, S1, S2 without murmur, rub or gallop. ABDOMEN: obese Soft, nontender, nondistended, normoactive bowel sounds, no guarding, no rebound, no hepatosplenomegaly, no masses. EXTREMITIES: 2+ pulses, warm, well-perfused, no edema. stent strings secured with tape to right inner thigh SKIN: Warm, dry, normal turgor, no rashes or lesions noted LABS Microbiology 10/19/16 14:00 Urine - Urine Clean Catch Urine Culture - Final NO GROWTH OBTAINED 10/19/16 13:25 Blood - Peripheral Venous Blood Culture - Preliminary NO GROWTH OBTAINED AFTER 48 HOURS, INCUBATION TO CONTINUE FOR 3 DAYS. 10/19/16 13:15 Blood - Peripheral Venous Blood Culture - Preliminary NO GROWTH OBTAINED AFTER 48 HOURS, INCUBATION TO CONTINUE FOR 3 DAYS. Laboratory Tests 10/18/16 10/18/16 10/18/16 17:12 17:12 17:12 WBC 14.2 H Hgb 14.0 Hct 42.4 BUN 17 Creatinine 1.3 H Urine Protein 1+ H Urine Ketones 1+ H Urine Blood 3+ H Urine Nitrite Negative Ur Leukocyte Esterase Negative Urine RBC 71 Urine WBC 6 Stone Size Stone Weight Stone Color 10/19/16 10/20/16 10/20/16 06:00 06:50 06:50 WBC 9.4 Hgb 12.2 Hct 36.0 BUN 17 10 D Creatinine 1.3 H 1.3 H Urine Protein Urine Ketones Urine Blood Urine Nitrite Ur Leukocyte Esterase Urine RBC Urine WBC Stone Size Stone Weight Stone Color 10/21/16 10/21/16 06:00 11:48 WBC Hgb Hct BUN 9 Creatinine 0.7 D Urine Protein Urine Ketones Urine Blood Urine Nitrite Ur Leukocyte Esterase Urine RBC Urine WBC Stone Size Pending Stone Weight Pending Stone Color Pending IMAGING: Spiral CT: Approximately 3 mm distal right ureteral calculus is noted approximately 2.5 cm from the level of the ureterovesical junction. There is resultant hydroureteronephrosis which is probably moderate. Note is also made of right perirenal fluid accumulation secondary to acute obstruction. There is also swelling of the right kidney probably on the same basis. The liver, spleen , pancreas, gallbladder, adrenal glands, and left kidney demonstrate no discrete noncontrast abnormality. There is no aortic aneurysm. No obvious lymphadenopathy. There is no CT evidence of acute appendicitis or diverticulitis. No obvious pelvic pathology. 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 On admission she had an elevated white count and elevated creatinine. She was treated with NS IVF and flomax but did not pass the stone. She underweent lithotripsy with stent placement by Dr. Aguilera on 10/20. She tolerated the procedure well without complications. Her creatinine improved after the procedure. She was treated rocephin 1gm daily from 10/19-10/21 and discharged with Vantin 200mg BID for additional 11 days to complete 14-day course. She does not require flomax as outpatient. Recommendations: Follow-up with Dr. Aguilera on for stent removal in office and Dr. Tineo in one to review hospital course. Stone studies and nasal swab for MRSA were pending at time of discharge Minutes to complete discharge: 44 Discharge Summary Reason For Visit: HYDRONEPHROSIS, PYELONEPHRITIS Condition: Improved - Instructions Diet, Activity, Other Instructions: keep suture taped to thigh, F/U in Dr. Aguilera' office 10/23 for stent removal. Take antibiotics, Vantin 200mg 1 tablet twice daily at the same time of day with food and plenty of water for 11 days to complete a 14-day course. Follow- up with Dr. Tineo in 1 week. If you develop fever, blood in your urine or any new symptoms, return to the hospital. Referrals: Kiko Aguilera MD [Staff Physician] - Jono Tineo MD [Primary Care Provider] - Disposition: HOME - Home Medications Comprehensive Discharge Medication List: Ambulatory Orders Cefpodoxime Proxetil [Vantin -] 200 mg PO Q12H #22 tablet 10/21/16 This patient is new to me today: No Emergency Visit: No Critical Care patient: No - Discharge Referral Referred to [facility] Med P.C.: No
--- NOTE | 2016-10-22 08:30 | PATH ---
Surgical Pathology Report Patient Name: SHARMILA PEGUERO [facility]. Rec. #: [id number] /Age/Gender: 1970 (Age: 46) / F Account: [id number] Location: [facility] MED/SURG Taken: 10/20/2016 Received: 10/21/2016 Reported: 10/22/2016 Physicians: Kiko Aguilera M.D. Specimen(s) Received KIDNEY STONE RT. URETER Clinical History Pyelonephritis, hydronephrosis Final Diagnosis RIGHT URETER STONE, EXTRACTION: CALCULI SUBMITTED FOR CHEMICAL ANALYSIS (gross only). Electronically Signed Ronald Be M.D. Gross Description Received fresh, labeled "right ureter stone," is a 0.3 cm in greatest dimension cruz-enciso, irregular calculus which is sent for chemical analysis. 10/21/201610/21/2016
[2016-10-25 00:07] LABS: COLOR Brown (.); SIZE 3x3x2 mm (.)
== END 2016-10-21 12:35 | disposition home or self-care (01) | DRG 896 ==
LOC: JER 13:21 → JERBED 23:49 → J7W 10-19 03:44
PROVIDERS: ADMIT Internal Medicine; ATTEND Internal Medicine
PROC: BT1DZZZ Fluoroscopy of Right Kidney, Ureter and Bladder (ICD-10-PCS; 2016-10-20)
PROC: 0TC68ZZ Extirpation of Matter from Right Ureter, Via Natural or Artificial Opening Endoscopic (ICD-10-PCS; principal; 2016-10-20 10:00)
PROC: 0T7B8DZ Dilation of Bladder with Intraluminal Device, Via Natural or Artificial Opening Endoscopic (ICD-10-PCS; 2016-10-20 10:00)
DX: N13.2 Hydronephrosis with renal and ureteral calculous obstruction (principal); N17.9 Acute kidney failure, unspecified; Z86.14 Personal history of Methicillin resistant Staphylococcus aureus infection
CPT/HCPCS: 36415; 74176; 76000-TC; 80048; 80053; 81003; 81015; 82360; 83690; 83735; 84100; 84703; 85025; 85610; 85730; 87040; 87081; 87086; 88300-TC; 94760; 99284-25